=== PATIENT | male | born 1955 | race Caucasian/White ===

== ENCOUNTER 2021-05-09 21:09 | Inpatient (IN) | payer MEDICARE, OTHER ==
[~2021-05-09] VITALS: Ht 175.3 cm; Wt 99.8 kg
[2021-05-09 21:50] LABS: HEMATOCRIT 34.9 % (36.7-47.1); MEAN CORPUSCULAR HEMOGLOBIN 25.6 uug (23.8-33.4); MEAN CORPUSCULAR VOLUME 78.8 fL (73.0-96.2); PLATELET COUNT (AUTO) 65 K/uL (152-348)
[2021-05-09 22:02] LABS: BILIRUBIN,DIRECT 0.3 mg/dL (0.0-0.2); BILIRUBIN,TOTAL 1.5 mg/dL (0.2-1.0); CREATININE 0.8 mg/dL (0.6-1.3); POTASSIUM 3.3 mmol/L (3.5-5.1); TOTAL PROTEIN, SERUM 7.1 g/dL (6.4-8.2)
--- NOTE | 2021-05-09 22:03 | NUR ---
Patient BIB pvt ambulance from [facility] in [place]. Per report patient broke windows in facility, eloped, and then was found by [employer] to be returned to the facility. [employer] did not place the patient on a 5150 despite the high risk for elopement with mental instability. Patient A/Ox1 to name. No acute neuro deficits noted. No signs of head trauma. Denies any sob, or cough. Denies cp at this time. No GI/ distress. Patient in bed, sr upx2. Patient placed on safety precautions but there are no available sitters that the hospital can provide at this time per house designer.
[2021-05-09] MEDS ORDERED: ASPIRIN 81 MG TAB.CHEW PO ONE (22:15)
[2021-05-09] MEDS ORDERED: POTASSIUM BICARBONATE/CIT AC 25 MEQ TABLET.EFF PO ONE (22:15)
[2021-05-09] MEDS ORDERED: METOPROLOL TARTRATE 50 MG TABLET PO ONE (22:15)
[2021-05-09] MEDS ORDERED: LACTULOSE 20 G/30 ML LIQUID UDC PO ONE (22:15)
[2021-05-09] MEDS ORDERED: ENOXAPARIN SODIUM 100 MG/ML DISP.SYRIN SQ ONE ×2 (22:15→22:56)
[2021-05-09] MEDS ORDERED: MULT-213 PO (22:24)
[2021-05-09] MEDS ORDERED: ERGO50CA PO (22:24)
[2021-05-09] MEDS ORDERED: ACET-2154 PO (22:24)
[2021-05-09] MEDS ORDERED: CRAN425C6 PO (22:24)
[2021-05-09] MEDS ORDERED: MELA3TAB41 PO (22:24)
[2021-05-09] MEDS ORDERED: THIA100T74 PO (22:24)
[2021-05-09] MEDS ORDERED: DOCU100C36 PO (22:24)
[2021-05-09] MEDS ORDERED: LACT10SO3 PO (22:24)
[2021-05-09] MEDS ORDERED: MAGN400O6 PO (22:24)
[2021-05-09] MEDS ORDERED: GABA600T12 PO (22:24)
[2021-05-09] MEDS ORDERED: RIFA550T PO (22:24)
[2021-05-09] MEDS ORDERED: PYRI-6 PO (22:24)
[2021-05-09] MEDS ORDERED: PANT40TA2 PO (22:24)
[2021-05-09] MEDS ORDERED: CARV3.122 PO (22:24)
[2021-05-09] MEDS ORDERED: LACTULOSE 20 G/30 ML LIQUID UDC ONE (22:56)
[2021-05-09] MEDS ORDERED: METOPROLOL TARTRATE 50 MG TABLET ONE (22:56)
[2021-05-09] MEDS ORDERED: POTASSIUM BICARBONATE/CIT AC 25 MEQ TABLET.EFF ONE (22:56)
[2021-05-09] MEDS ORDERED: ASPIRIN 81 MG TAB.CHEW ONE (22:56)
[2021-05-09 23:38] LABS: BAND % (MANUAL) 1 % (0-10); BASOPHILS % (MANUAL) 1 % (0-2); EOSINOPHILS % (MANUAL) 3 % (0-8); LYMPHOCYTES % (MANUAL) 21 % (20-40); MONOCYTES % (MANUAL) 10 % (2-10); NEUTROPHILS % (MANUAL) 64 % (42-75)
[2021-05-09] MEDS ORDERED: MAGNESIUM HYDROXIDE 30 ML LIQUID UDC PO PRN (23:45)
[2021-05-09] MEDS ORDERED: ACETAMINOPHEN 325 MG TABLET-SA PATIENTS-PAIN ONLY PO PRN (23:45)
[2021-05-10] MEDS ORDERED: Z GUARD REMEDY PASTE 57 GM TUBE TOP PRN
[2021-05-10] MEDS ORDERED: MAGNESIUM HYDROXIDE 30 ML LIQUID UDC PO PRN
[2021-05-10] MEDS ORDERED: ONDANSETRON 4 MG/2 ML VIAL IV PRN
--- NOTE | 2021-05-10 00:10 | NUR ---
Patient in bed, no acute distress noted. VSS. Will continue to monitor. Patient accepted by Cony Valles NP for inpatient telemetry admission.
[2021-05-10] MEDS ORDERED: LACTULOSE 20 G/30 ML LIQUID UDC PO ONE (02:00)
--- NOTE | 2021-05-10 02:25 | NUR ---
Report given to ANETA Jones for telemetry inpatient admission.
[2021-05-10 02:59] VITALS: BP 138/69
[2021-05-10 04:06] VITALS: BP 118/69
--- NOTE | 2021-05-10 04:20 | NUR ---
Admitted pt in Tele via gurney accompanied by ER nurse with dx of NSTEMI. He is alert and oriented x2, calm and cooperative, [place] speaking. On room air, no respiratory distress noted. Denies pain and discomfort at this time. Admission process observed, belongings list filled up, full body assessment done with pictures taken and placed in chart. Noted with rash on abdomen LLQ and R foot. MRSA swab done and urine specimen collected and sent to lab. All needs attended. Call light placed within reach and instructed to use for assistance. Will continue to monitor.
[2021-05-10 06:11] LABS: *BILIRUBIN,URIN NEGATIVE (NEGATIVE); *BLOOD, URINE NEGATIVE (NEGATIVE); *CLARITY,URINE CLEAR (CLEAR); *COLOR,URINE AMBER (YELLOW); *KETONES,URINE TRACE (NEGATIVE); *UROBILINOGEN,URINE 0.2 E.U./dl (NORMAL); LEUKOCYTE ESTERASE ,URINE NEGATIVE (NEGATIVE); NITRITE, URINE NEGATIVE (NEGATIVE); PH,URINE 6.5 (5.0-8.0); UGLUCOSE NEGATIVE (NEGATIVE)
[2021-05-10] MEDS ORDERED: ACETAMINOPHEN 325 MG TABLET PO PRN (06:15)
[2021-05-10] MEDS: PANTOPRAZOLE SODIUM 40 MG TABLET.DR PO SCH (06:31)
--- NOTE | 2021-05-10 06:44 | NUR ---
No changes noted. Pt slept intermittently and easily arousable for care. All needs attended. Call light placed within reach. Frequent visual checks done. Will endorse to next shift for continuity of care.
[2021-05-10 06:46] LABS: HEMATOCRIT 33.7 % (36.7-47.1); MEAN CORPUSCULAR HEMOGLOBIN 25.4 uug (23.8-33.4); MEAN CORPUSCULAR VOLUME 78.5 fL (73.0-96.2); PLATELET COUNT (AUTO) 62 K/uL (152-348)
--- NOTE | 2021-05-10 07:15 | NUR ---
Received report from equipment oiler nurse. Arrived to patient asleep comfortably. Will return to assess patient.
[2021-05-10 07:23] LABS: BILIRUBIN,DIRECT 0.4 mg/dL (0.0-0.2); CREATININE 0.7 mg/dL (0.6-1.3); PHOSPHOROUS 4.2 mg/dL (2.5-4.9); POTASSIUM 3.4 mmol/L (3.5-5.1); TOTAL PROTEIN, SERUM 6.6 g/dL (6.4-8.2)
--- NOTE | 2021-05-10 07:49 | NUR ---
Patient is awake, alert, and oriented x 2-3. Provided patient with comfort measures. Bed left in the lowest position with call light within reach. IV site intact and patent. Will continue to monitor patient.
[2021-05-10] MEDS ORDERED: POTASSIUM CHLORIDE 20 MEQ TAB.PRT.SR PO ONE (08:45)
[2021-05-10] MEDS: GABAPENTIN 300 MG CAPSULE PO SCH ×3 (08:56→17:42)
[2021-05-10] MEDS: LACTULOSE 20 G/30 ML LIQUID UDC PO SCH ×2 (08:56→17:42)
[2021-05-10] MEDS: DOCUSATE SODIUM 100 MG CAPSULE PO SCH (08:56)
[2021-05-10] MEDS: CARVEDILOL 3.125 MG TABLET PO SCH ×2 (08:58→17:41)
[2021-05-10 08:59] LABS: THYROID STIMULATING HORMONE 1.279 mIU/mL (0.358-3.740)
[2021-05-10] MEDS: MULTIVITAMINS,THERAPEUTIC TABLET PO SCH (08:59)
[2021-05-10] MEDS: THIAMINE HCL 100 MG TABLET PO SCH (08:59)
[2021-05-10] MEDS ORDERED: ASPIRIN 81 MG TAB.CHEW PO ONE (09:00)
[2021-05-10] MEDS ORDERED: ASPIRIN 81 MG TAB.CHEW PO SCH (09:00)
[2021-05-10] MEDS: CHOLECALCIFEROL 1,000 UNIT TABLET PO SCH (09:00)
[2021-05-10] MEDS ORDERED: Medication Not On Formulary EA (Cranberry Extract (Cranberry) 425 MG) PO SCH (09:00)
[2021-05-10] MEDS ORDERED: PANTOPRAZOLE SODIUM 40 MG VIAL IV SCH (09:00)
[2021-05-10] MEDS: PYRIDOXINE HCL 100 MG TABLET PO SCH (09:03)
[2021-05-10] MEDS: RIFAXIMIN 550 MG TABLET PO SCH ×2 (09:08→17:40)
--- NOTE | 2021-05-10 11:18 | NUR ---
UA was collected at 11:00 and sent to lab. Addendum: 05/10/21 at 1451 by MOISES NEWTON RN Charted the wrong patient.
[2021-05-10 12:17] VITALS: BP 135/66
[2021-05-10] MEDS: LORAZEPAM 0.5 MG TABLET PO SCH ×2 (13:27→17:42)
--- NOTE | 2021-05-10 14:53 | NUR ---
Patient is received awake in his room. A/O X 3 to person, place. Pt. affect is cooperative, sociable, talkative, redirectable. Compliant with medications. Continent of bladder and bowel. Requires minimal assistance with ADL. Ambulates without assistance. Emotional support provided. Fall and safety precautions implemented.
[2021-05-10 16:00] VITALS: BP 118/69
--- NOTE | 2021-05-10 20:00 | NUR ---
RECEIVED PATIENT AWAKE IN BED. A/O X 2-3. VIET[place]ESE SPEAKING. DENIES PAIN OR DISCOMFORT. NO RESP. DISTRESS NOTED. ON TELE SR. VS WNL. HEPLOCK INTACT AND PATENT. CALL LIGHT IN REACH. ALL NEEDS ATTENDED. WILL CONTINUE TO MONITOR AND ASSESS.
[2021-05-10 20:03] VITALS: BP 101/48
[2021-05-10] MEDS ORDERED: MELATONIN 3 MG TABLET PO SCH (21:00)
[2021-05-11] VITALS: BP 131/61
[2021-05-11 04:06] VITALS: BP 126/65
[2021-05-11] MEDS: PANTOPRAZOLE SODIUM 40 MG TABLET.DR PO SCH (06:13)
--- NOTE | 2021-05-11 07:30 | NUR ---
RECEIVED PATIENT WALKING AROUND IN ROOM, PATIENT WITH STEADY GAIT, ALERT AND ORIENTED X2 AND ABLE TO MAKE NEEDS KNOWN. PATIENT IS PLEASANT, NO SIGNS OF AGGRESSIVE BEHAVIOR AT THIS TIME. DENIES ANY CHEST PAIN OR ANY OTHER PAIN AT THIS TIME. PLAN FOR TODAY IS POSSIBLE TRANSFER TO [facility] IF PATIENT IS MEDICALLY CLEARED. CALL LIGHT WITHIN REACH, WILL MONITOR.
[2021-05-11] MEDS: DOCUSATE SODIUM 100 MG CAPSULE PO SCH (08:19)
[2021-05-11] MEDS: LACTULOSE 20 G/30 ML LIQUID UDC PO SCH ×2 (08:19→16:55)
[2021-05-11] MEDS: LORAZEPAM 0.5 MG TABLET PO SCH ×3 (08:20→16:55)
[2021-05-11] MEDS: CHOLECALCIFEROL 1,000 UNIT TABLET PO SCH (08:20)
[2021-05-11] MEDS: THIAMINE HCL 100 MG TABLET PO SCH (08:21)
[2021-05-11] MEDS: MULTIVITAMINS,THERAPEUTIC TABLET PO SCH (08:21)
[2021-05-11] MEDS: GABAPENTIN 300 MG CAPSULE PO SCH ×3 (08:21→16:55)
[2021-05-11] MEDS: RIFAXIMIN 550 MG TABLET PO SCH ×2 (08:25→16:58)
[2021-05-11] MEDS: PYRIDOXINE HCL 100 MG TABLET PO SCH (08:25)
[2021-05-11] MEDS: CARVEDILOL 3.125 MG TABLET PO SCH ×2 (08:25→16:55)
[2021-05-11] MEDS ORDERED: ASPIRIN 81 MG TAB.CHEW PO SCH (09:00)
[2021-05-11 09:51] LABS: HEMATOCRIT 34.3 % (36.7-47.1); MEAN CORPUSCULAR HEMOGLOBIN 25.3 uug (23.8-33.4); MEAN CORPUSCULAR VOLUME 78.6 fL (73.0-96.2); PLATELET COUNT (AUTO) 61 K/uL (152-348)
[2021-05-11 10:06] LABS: BILIRUBIN,TOTAL 1.5 mg/dL (0.2-1.0); CREATININE 0.7 mg/dL (0.6-1.3); PHOSPHOROUS 4.5 mg/dL (2.5-4.9); POTASSIUM 3.8 mmol/L (3.5-5.1); TOTAL PROTEIN, SERUM 6.6 g/dL (6.4-8.2)
[2021-05-11 11:42] VITALS: BP 117/53
--- NOTE | 2021-05-11 12:06 | NUR ---
WOUND CARE CONSULT: PT SEEN FOR PINK PATCHES ON ABDOMEN, PRESENT ON ADMISSION. NO ERYTHEMA, TENDERNESS OR DRAINAGE NOTED. PT IS AMBULATORY AND CONTINENT. WILL SEE PRN.
[2021-05-11] MEDS ORDERED: LACT10SO3 PO (15:23)
[2021-05-11] MEDS ORDERED: LORA0.5T48 PO (15:23)
[2021-05-11] MEDS ORDERED: ACET325T53 PO (15:23)
--- NOTE | 2021-05-11 15:37 | NUR ---
New order for transfer to [facility], called Sophie from crisis team to evaluate patient and for patient to be placed on hold, no answer, message was left. will f/u
--- NOTE | 2021-05-11 15:49 | NUR ---
received call from vanessa, per vanessa she isnt available, called intake spoke with martha, per martha she will call brad to return my call, to have patient evaluated, pending call back.
[2021-05-11 16:00] VITALS: BP 111/45
[2021-05-11 16:55] VITALS: BP 111/51
--- NOTE | 2021-05-11 17:37 | NUR ---
belonging lists completed with 2 nurses and discharge paperwork completed with 2 nurses, patient unable to sign due to cognitive status. Informed patient of transfer to [facility], patient with slight confusion, replies ok
--- NOTE | 2021-05-11 18:00 | NUR ---
patient seen by ART from crisis team, patient placed on hold.
--- NOTE | 2021-05-11 18:15 | NUR ---
report given to prasad from [facility] all questions answered.
--- NOTE | 2021-05-11 18:20 | NUR ---
patient taken to m[facility] in wheelchair all belongings with patient all paperwork sent with patient and staff member. upon transfer patient with v/s wnl, stable, iv site removed no bleeding noted, dressing applied.
== END 2021-05-11 18:25 | DRG 441 ==
LOC: ER 21:11 → TELE3 23:00 → MEDSURG3 05-11 10:15
PROVIDERS: ADMIT Internal Medicine; ATTEND Internal Medicine
DX: K72.90 Hepatic failure, unspecified without coma (principal); I21.4 Non-ST elevation (NSTEMI) myocardial infarction; F05 Delirium due to known physiological condition; F01.51 Vascular dementia, unspecified severity, with behavioral disturbance; E87.6 Hypokalemia; K70.30 Alcoholic cirrhosis of liver without ascites; G62.1 Alcoholic polyneuropathy; D50.9 Iron deficiency anemia, unspecified; D69.59 Other secondary thrombocytopenia; E11.9 Type 2 diabetes mellitus without complications; E53.8 Deficiency of other specified B group vitamins; E66.9 Obesity, unspecified; E78.5 Hyperlipidemia, unspecified; I10 Essential (primary) hypertension; Z20.822 Contact with and (suspected) exposure to COVID-19; Z87.440 Personal history of urinary (tract) infections; Z68.32 Body mass index [BMI] 32.0-32.9, adult; F41.9 Anxiety disorder, unspecified; Z91.19 Patient's noncompliance with other medical treatment and regimen; Z86.73 Personal history of transient ischemic attack (TIA), and cerebral infarction without residual deficits; Z87.891 Personal history of nicotine dependence; F10.11 Alcohol abuse, in remission
CPT/HCPCS: 36415; 70030-TC; 70450; 71045; 83690; 84100; 84153; 84443; 85025; 85610; 85730; 93005; 93307; A4663; G0378; J1650